=== PATIENT | female | born 1950 | race Caucasian/White ===

== ENCOUNTER 2019-12-06 16:46 | Emergency (ER) | payer OTHER ==
[~2019-12-06] VITALS: Ht 170.2 cm; Wt 113.4 kg
[2019-12-06 18:43] VITALS: BP 176/80
== END 2019-12-06 18:44 | disposition home or self-care (01) ==
LOC: ER 16:46
DX: I10 Essential (primary) hypertension (principal)

== ENCOUNTER 2019-12-08 00:50 | Emergency (ER) | payer OTHER ==
[~2019-12-08] VITALS: Ht 172.7 cm; Wt 113.4 kg
[2019-12-08] MEDS ORDERED: ATORVASTATIN CA20 MG PO (01:26)
[2019-12-08] MEDS ORDERED: MEDROL DOSPAK21 TA1 PO (01:26)
[2019-12-08] MEDS ORDERED: FAMOTIDINE40 MG PO (01:26)
[2019-12-08] MEDS ORDERED: LISINOPRIL5 MG PO (01:26)
[2019-12-08] MEDS ORDERED: LEVAQUIN 500 M500 M1 PO (01:26)
[2019-12-08] MEDS ORDERED: HYDROCODONE-CH115 ML PER TUBE (01:27)
[2019-12-08] MEDS ORDERED: GLIPIZIDE5 MG PO (01:27)
[2019-12-08] MEDS ORDERED: FLONASE 0.05%50 MCG NASAL (01:29)
[2019-12-08] MEDS ORDERED: DICLOFENAC SOD100 G1 TOP (01:29)
[2019-12-08] MEDS ORDERED: GLUCOPHAGE XR750 MG PO (01:29)
[2019-12-08] MEDS ORDERED: BENZONATATE200 MG PO (01:29)
[2019-12-08] MEDS ORDERED: PROAIR HFA8.5 GM INH (01:29)
[2019-12-08] MEDS ORDERED: DULOXETINE HCL20 MG PO (01:30)
[2019-12-08] MEDS ORDERED: AMOXICILLIN875 MG (01:31)
[2019-12-08 03:17] VITALS: BP 120/63
== END 2019-12-08 03:27 | disposition home or self-care (01) ==
LOC: ER 00:50
DX: R51 Headache (principal); M19.90 Unspecified osteoarthritis, unspecified site

== ENCOUNTER 2019-12-11 11:39 | Inpatient (IN) | payer OTHER ==
[~2019-12-11] VITALS: Ht 170.2 cm; Wt 114.3 kg
[~2019-12-11 11:39] MED LIST: AMOXICILLIN875 MG; ATORVASTATIN CA20 MG PO; BENZONATATE200 MG PO; DICLOFENAC SOD100 G1 TOP; DULOXETINE HCL20 MG PO; FAMOTIDINE40 MG PO; FLONASE 0.05%50 MCG NASAL; GLIPIZIDE5 MG PO; GLUCOPHAGE XR750 MG PO; HYDROCODONE-CH115 ML PER TUBE; LEVAQUIN 500 M500 M1 PO; LISINOPRIL5 MG PO; MEDROL DOSPAK21 TA1 PO; PROAIR HFA8.5 GM INH
[2019-12-11 11:41] VITALS: BP 154/71
[2019-12-11 15:34] LABS: URINE BILIRUBIN NEGATIVE (Negative); URINE BLOOD NEGATIVE (Negative); URINE CLARITY CLEAR; URINE COLOR YELLOW; URINE GLUCOSE-RANDOM* NEGATIVE (Negative); URINE KETONES NEGATIVE (Negative); URINE LEUKOCYTES-REFLEX NEGATIVE (Negative); URINE NITRITE-REFLEX NEGATIVE (Negative); URINE PROTEIN (DIPSTICK) NEGATIVE (Negative); URINE SPECIFIC GRAVITY >= 1.030 (1.005-1.035); URINE UROBILINOGEN 0.2 E.U./dl (0.2-1.0)
[2019-12-11 15:42] LABS: ABSOLUTE NEUTROPHILS 6.6 thou/uL (1.4-8.2); BASOPHILS 1.1 % (0.0-2.0); EOSINOPHILS 1.7 % (0.0-3.0); HEMATOCRIT 38.3 % (37.0-47.0); HEMOGLOBIN 12.8 gm/dL (12.0-15.0); LYMPHOCYTES 25.5 % (24.0-44.0); MCH 32.9 pg (26.0-34.0); MCHC 33.5 g/dL (28.0-37.0); MCV 98.1 fL (80.0-100.0); MONOCYTES 7.4 % (1.0-8.0); PLATELET COUNT 226 thou/uL (150-400); POLYS 64.3 % (36.0-66.0); RDW 13.1 % (10.5-14.5); WBC 10.2 thou/uL (4.0-11.0)
[2019-12-11 15:54] LABS: AMP/METHAMP Negative (Negative); BARBITURATES Negative (Negative); BENZODIAZEPINES Negative (Negative); COCAINE Negative (Negative); METHADONE Negative (Negative); OPIATES Negative (Negative); PCP Negative (Negative)
[2019-12-11 15:58] LABS: ANION GAP 12 mmol/L (7-16); BUN 15 mg/dL (7-18); CALCIUM 8.5 mg/dL (8.5-10.1); CHLORIDE 104 mmol/L (98-107); CO2 24 mmol/L (21-32); CREATININE 1.1 mg/dL (0.6-1.0); GLUCOSE 231 mg/dL (74-106); POTASSIUM 3.6 mmol/L (3.5-5.1); SODIUM 140 mmol/L (136-145)
[2019-12-11 16:02] LABS: ALBUMIN 3.6 g/dL (3.4-5.0); DIRECT BILIRUBIN < 0.1 mg/dL (<0.1-0.2); SGOT 12 U/L (15-37); SGPT 21 U/L (30-65); TOTAL BILIRUBIN 0.4 mg/dL (<0.1-1.0); TOTAL PROTEIN 7.5 g/dL (6.4-8.2)
[2019-12-11] MEDS ORDERED: SEROQUEL 25 MG25 MG PO (16:04)
[2019-12-11] MEDS ORDERED: TRAMADOL-ACETA1 EACH PO (16:05)
[2019-12-11] MEDS ORDERED: HYDROXYZINE HCL25 M2 PO (16:06)
[2019-12-11 16:44] VITALS: BP 131/59
[2019-12-11 16:48] VITALS: BP 131/59
[2019-12-11 19:15] VITALS: BP 147/69
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
--- NOTE | 2019-12-12 03:53 | NUR ---
Care assumed of patient at 1915: Patient seated in her room at start of shift talking on the phone. Patient hyperverbal and hyperactive. Patient alert and oriented x4. Patient has difficulty answering one question at a time. Patient demanding at times. Patient interuptive, sarcastic, intrusive. Patient observed touching, holding hands, rubbing shoulders of peers and staff. Patient required several re-directions. Patient then started to call staff mean. Reports that her daughter is a very educated person and is very supportive of her and she will make all her concerns known to her daughter. Patient then going around to other peers promising that her boyfriend will bring his guitar in the morning and play/sing for everyone. Patient re-directed that no outside belongings are allowed in besides 2 pair of clothing. Patient continued to tell peers this story despite re-direction. Patient then started to demand a diet coke. Patient re-directed that she was not allowed any drink with caffiene. So she started demanding caffiene free diet coke. Patient intrusive at the nurses station several times during nursing report and throughout the shift. Patient continues to talk at a higher volume while attempting to re-direct. Patient began yelling for her personal belongings, cell phone, wash clothes, muscle relaxers, soap, toothbrush, diabetic snacks. Patient large management problem this shift. It took several minutes for patient to take HS medication whole due to her talking continuously. Patient needing strict boundaries which are not always successful. Patient did eat 100% HS snack despite it not being "the right snack". Disorganized speech, flight of ideas. Nurse attempted to assess pain but patient started to speak about her Bible and readings. Attempted to assess depression and anxiety but patient started to speak about how much she loves her boyfriend. Patient hyperactive around dayroom and bedroom and hallways. Patient retired to bed around 2200 but was unable to sleep. Despite nurse being on the phone, patient came up to the nurses station and started to yell at nurse, asking if she can sit up and read her Bible. Nurse allowed patient to sit up and read Bible but instructed her to remain quiet and stay to self since others are trying to sleep. Patient did not even sit down once she went to dayroom and started to sit with peer rubbing his leg. MD notified. Order obtained for Geodon 15mg IM. Security notified due to unpredictable behaviors from patient. animal park code enforcement officer made presence known when she started to yell and say she was scared. Patient then started to talk about how her boyfriends cousin was an [facility] officer and she wasn't scared followed by another long explanation of disorganized speech. Patient allowed nurse to administer medication to right deltoid. However, patient did grab nurses hand while medication was administered and required re-direction to keep hands to herself. Patient escorted to bed 15 minutes later and she has been resting quietly since.
--- NOTE | 2019-12-12 12:04 | NUR ---
Nutrition: Pt admit to [facility] for psych eval following headache and high blood pressure and is hyperverbal. Also treated with abx for bronchitis. Malnutrition screening revealed 2pt risk d/t poor intake from decreased appetite and reported wt loss of 14-23# in the last 3 months. Has T2DM, HTN, HLD. Hx osteoarthritis. Claims psych symptoms began 6 weeks ago when one doctor prescribed prednisone. Also stated her appetite decreased significantly around that time, leading to weight loss of around 20# from her usual 260#. Currently 245# or 94% of UBW. States appetite has improved and returned to normal. She "loves the food here." Intake is good at 100% of HS snack and 100% breakfast. Follows diabetic diet at home and states her boyfriend is supportive and helpful with cooking. Edema present and Lasix noted. Glucose ranging from 161-231, HgA1c results pending. Pertinent meds are metformin, glipizide, atorvastatin, lisinopril. Cholecalciferol noted for Vit D deficiency at 6.9. No muscle wasting observed. Continue to monitor for nutrient deficiency, weight changes, appetite, and intake. Considering good appetite, intake, and weight beginning to stabilize, Pt should be considered low nutritional risk.
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
[2019-12-12 20:17] VITALS: BP 117/50
--- NOTE | 2019-12-12 20:29 | NUR ---
Up ambulating t/o unit without s/o distress. Hyperverbal at times. Alert and orientated X4. Conversive with peers and staff, visitors. Phone and some belongings sent home with daughter per inventory sheet. Denies SI/HI. Tylenol given during afternoon for CARIAS, sleeping upon reassessment. Breath sounds clear t/o, bilaterally equal. Reg HR auscultated. Color pink with brisk capillary refill and palpable peripheral pulses. Independent with voiding. Active bowel sounds over soft, rounded abdomen. R upper gums reddened, she states it is painful. Also asking about BG. Dr. Spaulding paged X 2 regarding Lasix without K+ replacement, no order for BG and above issues. Here examining pt. States he will enter orders. 1800 No s/o distress. Talking on phone and interacting with peers.
[2019-12-12 23:10] LABS: GLYCOHEMOGLOBIN (HGB A1C) 7.5 % (4.8-5.6)
--- NOTE | 2019-12-13 04:48 | NUR ---
ASSUMED CARE OF PT AT 1915HRS. PT IS AOX4 AND LETS NEEDS BE KNOWN. PT IS INDEPENDENT WITH A WALKER. PT LIKES TO BE IN CHARGE AND IS EASILY UPSET IF SHE DOES NOT HAVE THINGS HER WAY. PT LIKES TO SNACK FREQUENTLY AND WILL APPROACH DIFFERENT STAFF MEMBERS. PT REPORTED SOME PAIN AND WAS TREATED WITH PRN PAIN MEDS. PT DENIED SI/HI, NAUSEA OR SOA. PT WAS ABLE TO SLEEP PART OF THE SHIFT. VSS AND NO S/S OF ACUTE DITRESS. WILL CONTINUE TO MONITOR.
[2019-12-13 08:57] VITALS: BP 128/67
--- NOTE | 2019-12-13 15:33 | NUR ---
0700 ASSUMED CARE OF PATIENT. PATIENT SITTING ON COUCH COMMUNICATION WITH OTHER PATIENTS. PATIENT STATES NOT FEELING TO GOOD TODAY, STATES SHE IS PASSING OUT. i HAVE OBSERVED PATIENT AND PATIENT AMBULATES TO ROOM WITH WALKER PATIENT STATES SHE IS GOING TO THE ROOM TO PASS OUT. BP 128/67 P 100 RESP 18 T 97.5 O2 SATS 99%. PATIENT LIES DOWN CLOSES EYES THEN 5-10 MIN LATER GETS BACK UP AND TO DAYROOM. 0900 PATIENT TAKES MEDS WHOLE WITHOUT DIFFICULTY STATES "I WILL DISCUSS MEDS WITH DR I AM TAKING TO MUCH, I TOOK 9 MEDS LAST NIGHT". LUNG SOUNDS CLEAR, BS X 4, DENIES PAIN, NO SI/HI/AH/VH. PATIENT SITTING IN CHAIR. STATES GOING TO PASSOUT AND MOVES TO GERICHAIR. PATIENT CONTINUES TO TALK TO DIGITIZER OPERATOR, IS DISTRACTED WITH OTHER PATIENTS AND DOES NOT PASS OUT. PATIENT AMB BACK TO CHAIR WITH OTHER PATIENTS.
--- NOTE | 2019-12-13 15:50 | NUR ---
1515 PATIENT C/O DISCOMFORT TO KNEES BILATERALY AND CALVES BILATERALY. MUSCLE RUB APPLIED TO THESE AREAS. PATIENT LYING DOWN AT THIS TIME. [address] REGARDING HOW PATIENT FEELS AND EXPLAINING HER FEELING OF WANTING TO FAINT. NO OBSERVATIONS OF PATIENT FAINTING. WILL CONTINUE TO OBSERVE PATIENT.
[2019-12-13 18:01] LABS: HEMATOCRIT 38.8 % (37.0-47.0); MCH 32.8 pg (26.0-34.0); MCHC 33.6 g/dL (28.0-37.0); MCV 97.6 fL (80.0-100.0); RBC 3.98 mil/uL (4.20-5.00); RDW 12.9 % (10.5-14.5); WBC 9.1 thou/uL (4.0-11.0)
[2019-12-13 18:19] LABS: ANION GAP 10 mmol/L (7-16); BUN 14 mg/dL (7-18); CALCIUM 8.9 mg/dL (8.5-10.1); CHLORIDE 100 mmol/L (98-107); CO2 27 mmol/L (21-32); GLUCOSE 167 mg/dL (74-106); MAGNESIUM 1.8 mg/dL (1.8-2.4); SODIUM 137 mmol/L (136-145); TROPONIN-I <0.06 ng/mL (<0.06)
[2019-12-13 19:44] VITALS: BP 127/54
[2019-12-13 20:11] LABS: SYPHILIS AB Non Reactive (Non Reactive)
--- NOTE | 2019-12-14 03:48 | NUR ---
PATIENT UP AND WALKED OUT TO DINING ROOM WITH HER WALKER. SHE STATES SHE CAN'T SLEEP AND SHE IS STIFF FROM ARTHRITIS AND WANTS TYLENOL. PATIENT VERY NEEDY AND KEEPS ASKING FOR PEOPLE TO GO AND GET HER GLASSES, SHOES, WATER, NO I WANT IN THE RECLINER, MOVE IT UNDER THE LIGHT, GET ME A MAGAZINE. PT GIVEN TYLENOL AND AM LETTING HER DO WHAT SHE CAN FOR HERSELF EVEN WITH SOME FRUSTRATION FROM HER. PATIENT THEN GOT BACK UP TO GO TO HER ROOM TO USE THE BATHROOM. SHE STATES SHE FEELS BETTER THAN SHE DID A FEW MINUTES AGO. PATIENT HAS IV SALINE LOCK INTACT ON LEFT ARM. HER IV NS 500MLS ENDED AT 2335 AND WAS FLUSHED WITH NS AND LOCKED AND DETATCHED FROM IV PUMP AT THAT TIME.
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
[2019-12-14 06:02] LABS: HEMATOCRIT 35.2 % (37.0-47.0); HEMOGLOBIN 11.9 gm/dL (12.0-15.0); MCHC 33.8 g/dL (28.0-37.0); MCV 97.9 fL (80.0-100.0); RBC 3.59 mil/uL (4.20-5.00); RDW 13.1 % (10.5-14.5); WBC 5.8 thou/uL (4.0-11.0)
[2019-12-14 06:10] LABS: CALCIUM 8.2 mg/dL (8.5-10.1); MAGNESIUM 1.7 mg/dL (1.8-2.4); POTASSIUM 3.6 mmol/L (3.5-5.1)
--- NOTE | 2019-12-14 08:18 | EKG ---
[facility] [place] [address] ELECTROCARDIOGRAM REPORT Name: SE BONILLA Room #: [facility] ADM IN M.R.#: [id number] Admission: 12/11/19 Attend Phys: Erick Sauceda DO Discharge: Date of : 46 Report #: [id number] THIS REPORT FOR: cc: Michael Coe MD, Sequita MD Lundgren,Misael Huitron MD [facility] ~ THIS REPORT FOR: //name// [facility] Test Date: 2019-12-13 Test Time: 18:36:05 Pat Name: SE BONILLA Department: Room: [facility] Gender: F Store Clerk Checker: Coy BENAVIDES : 1950 Requested By: Harry Spaulding Order Number: [id number] MD: Misael Adams Measurements Intervals [place] Rate: 93 P: 77 MN: 177 QRS: 34 QRSD: 93 T: 23 QT: 365 QTc: 454 Interpretive Statements Sinus rhythm Nonspecific ST and T wave abnormality Compared to ECG 12/11/2019 15:39:44 No significant changes Electronically Signed On 12-14-2019 8:17:43 ECONOMICS INSTRUCTOR by Misael Adams [email or web address] <ELECTRONICALLY SIGNED> By: Misael Adams MD, [facility] 12/14/19 0817 1836 1836 Misael Adams MD, [facility] /EPI
--- NOTE | 2019-12-14 09:08 | 2DMMODE ---
[facility] [place] [address] 2 D/M-MODE ECHOCARDIOGRAM Name: SE BONILLA Room #: 518B-B ADM IN M.R.#: [id number] Admission: 12/11/19 Attend Phys: Erick Sauceda DO Discharge: Date of : 46 Report #: [id number] THIS REPORT FOR: cc: Michael Coe MD, Sequita MD Lundgren,Misael Huitron MD [facility] ~ APPROVED REPORT Study performed: 12/14/2019 08:31:05 EXAM: Comprehensive 2D, Doppler, and color-flow Echocardiogram Patient Location: Echo lab Room #: 518 Status: routine BSA: 2.20 HR: 84 bpm BP: 127/54 mmHg Rhythm: NSR Other Information Study Quality: Adequate Indications Bilateral leg edema. Hx: HTN, HLP, DM. 2D Dimensions RVDd: 34.50 mm IVSd: 12.17 (7-11mm) LVOT Diam: 19.71 (18-24mm) LVDd: 43.16 mm PWd: 11.07 (7-11mm) Ascending Ao: 27.04 (22-36mm) LVDs: 30.72 (25-40mm) Aortic Root: 28.05 mm Volumes Left Atrial Volume (Systole) Single Plane 4CH: 43.61 mL Single Plane 2CH: 39.70 mL LA ESV Index: 21.00 mL/m2 Aortic Valve AoV Peak Bandar.: 1.46 m/s AO Peak Gr.: 8.49 mmHg LVOT Max P.83 mmHg LVOT Max V: 0.98 m/s MSUTAPHA Vmax: 2.05 cm2 [facility] [email or web address] [address] 2 D/M-MODE ECHOCARDIOGRAM Name: SE BONILLA Room #: 518B-B ADM IN ..#: [id number] Admission: 12/11/19 Attend Phys: Erick Sauceda Discharge: Date of : 46 Report #: [id number] Mitral Valve E/A Ratio: 0.8 MV Decel. Time: 143.45 ms MV E Max Bandar.: 0.79 m/s MV A Bandar.: 0.93 m/s MV PHT: 41.60 ms IVRT: 58.82 ms Pulmonary Valve PV Peak Bandar.: 1.15 m/s PV Peak Gr.: 5.25 mmHg Pulmonary Vein P Vein S: 0.54 m/s P Vein A: 0.32 m/s P Vein D: 0.42 m/s P Vein A Dur.: 117.6 msec P Vein S/D Ratio: 1.29 Tricuspid Valve TR Peak Bandar.: 1.82 m/s RAP Estimate: 5.00 mmHg TR Peak Gr.: 13.23 mmHg PA Pressure: 18.00 mmHg Left Ventricle The left ventricle is normal size. There is normal LV segmental wall motion. Mild basal septal hypertrophy is present. Left ventricular systolic function is normal. LVEF is 60-65%. Mild diastolic dysfunction is present (impaired relaxation pattern). Right Ventricle The right ventricle is normal size. The right ventricular systolic function is normal. Atria The left atrium size is normal. The right atrium size is normal. Aortic Valve The aortic valve is normal in structure. No aortic regurgitation is present. There is no aortic valvular stenosis. Mitral Valve The mitral valve is normal in structure. Trace to mild mitral regurgitation. Tricuspid Valve The tricuspid valve is normal in structure. Trace tricuspid [facility] [address] [place] [address] 2 D/M-MODE ECHOCARDIOGRAM Name: NAYELIWAYNEEDIESE Room #: 518B-B ADM IN .R.#: [id number] Admission: 12/11/19 Attend Phys: Erick Sauceda Discharge: Date of : 46 Report #: [id number] regurgitation. Estimated PAP is 20mmHg. Pulmonic Valve The pulmonary valve is normal in structure. Trace pulmonic regurgitation. Great Vessels The aortic root is normal in size. The ascending aorta is normal in size. IVC is normal in size and collapses >50% with inspiration. Pericardium There is no pericardial effusion. <Conclusion> Left ventricular systolic function is normal. There is normal LV segmental wall motion. LVEF is 60-65%. Mild diastolic dysfunction The aortic valve is normal in structure. No aortic regurgitation or stenosis. The mitral valve is normal in structure. Trace to mild mitral regurgitation. Trace tricuspid regurgitation. Estimated puilmonary artery pressure of 20mmHg. There is no pericardial effusion. <ELECTRONICALLY SIGNED> By: Misael Adams MD, FACC 12/14/19906 6 6 Misael Adams MD, FACC /INF
--- NOTE | 2019-12-14 11:22 | EKG ---
[facility] [place] [address] ELECTROCARDIOGRAM REPORT Name: SE BONILLA Room #: 518B- ADM IN M.R.#: [id number] Admission: 12/11/19 Attend Phys: Erick Sauceda DO Discharge: Date of : 46 Report #: [id number] THIS REPORT FOR: cc: Michael Coe MD, Sequita MD Couchonnal,Cain Bauman MD ~ THIS REPORT FOR: //name// [facility] ED Test Date: 2019-12-11 Test Time: 15:39:44 Pat Name: SE BONILLA [facility] Gender[facility] F Chip Tester: LAUREN : 1950 Requested By: Steffi Calle Order Number: [id number] MD: Cain Castillo Measurements Intervals [place] Rate: 85 P: 77 WA: 170 QRS: 28 QRSD: 99 T: 24 QT: 366 QTc: 436 Interpretive Statements Sinus rhythm Low voltage, precordial leads Borderline T wave abnormalities No previous ECG available for comparison Electronically Signed On 12-11-2019 16:54:44 DIP LUBE OPERATOR by Cain Castillo [email or web address] <ELECTRONICALLY SIGNED> By: Cain Castillo MD 12/11/19 1654 1539 1539 Cain Castillo MD /EPI
--- NOTE | 2019-12-14 11:40 | NUR ---
Up ambulating in unit with walker, no s/o distress. Alert and orientated X4. States she feels good today. Denies SI/HI, no mention of pain. Conversive with peers and staff. Breath sounds clear t/o, bilaterally equal. Reg HR auscultated. Color pink with brisk capillary refill and palpable peripheral pulses. +1 edema in lower extremities. Independent with voiding. Active bowel sounds over large, rounded abdomen. Attempting to have BM at this time. [address] Sauceda that she doesn't feel well, needs to go lay down in bed. He encouraged her to stay in day room on couch for a few moments and refilled her water. Vitamin B12 shot given per L arm without difficulty. Will get orthostatic BPs after group/visiting hours.
[2019-12-14 13:16] VITALS: BP 120/65
[2019-12-14 13:52] VITALS: BP 119/51
[2019-12-14 13:55] VITALS: BP 115/50
[2019-12-14 14:00] VITALS: BP 113/61
[2019-12-14 19:30] VITALS: BP 125/53
--- NOTE | 2019-12-14 23:49 | NUR ---
Care assumed of patient at 1915: Patient seated in dayroom at start of shift. Patient speaking with her daughter on the phone at start of shift. Daughter called nurses station with some concerns after speaking with patient. Daughter reported that patient kept falling asleep while they were speaking on the phone, concerned about patient falling if she is overly sedated, concerned about current medication dosage. Appears that dosage of Haldol was reduced, education provided to daughter on patient on this. Educated daughter and patient on fall precautions in place. Patient up and speaking with peers throughout the evening. Overall, calm, pleasant and cooperative. Patient easily agitated and difficulty focusing on one topic during nursing assessment. Patient hyperverbal and attention seeking at times. Patient less intrusive with staff. Patient demanding at times and reminded to use please/thank you's and to ask rather than demand. Patient did not care for this re-direction and became quite irritable causing nurse a bully and that she was going to turn in staff for being rude/disrespectful. Patient took HS medication whole without difficulty but was particular in the order she took them. Became rude when one pill was handed to her before a different one. Obsessive at times. Ate 100% HS snack. Appeared as though patient retired to bed at a reasonable hour. Dining room was cleaned, open food/containers thrown away, craft supplies put away. Patient came to day room around 2200 asking where her cookies were and her markers. Patient notified that staff thought she had retired to bed and apologized. Patient then started calling staff a "snitch" and that staff had no right to go through her belongings. Despite all education provided regarding cleaning and picking up the day room, patient remained angry and agitated with staff. Patient started to fall asleep in recliner and was asked if she wanted assistance to bed. Patient stated she never went to bed before midnight and she wasn't tired. Education provided that she needed to get a good night of rest so she would not be tired during the day. Patient was agitated, stating she was an adult and could do what she wanted. Denies SI/HI/AH/VH. Denies anxiety or depression. Patient recently retired to bed and appears to be resting quietly at this time.
--- NOTE | 2019-12-15 11:52 | NUR ---
MILDLY HYPERVERBAL THIS AM. CONVERSING WITH FEMALE PEERS IN DAYROOM-AND WITH BF AND DAUGHTER DURING AM VISITING HOURS. NEEDS REMINDERS TO MARYBEL BE CAREAKING AND INTRSUDVE WITH PEER GROUP, RENETTA AT [phone]. GOOD APPETTITE, GAIT SLOW AND STEADY WITGH USE OF ROCKER.
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
[2019-12-15 19:15] VITALS: BP 109/61
--- NOTE | 2019-12-15 23:57 | NUR ---
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 SHE IS SITTING IN DAYROOM WITH PEERS, MAKING VARIOUS DEMANDS. SOME COOPERATION WITH ASSESSMENT PROCESS WITH MUCH REDIRECTION. TOOK MEDS WITH QUITE A LOT OF ENCOURAGEMENT, REQUIRING CRACKERS AND TAKING ONE PILL AT A TIME, ACTING LIKE SHE IS GOING TO REFUSE SOME, THEN TAKING THEM AFTER ALL. GREAT DEAL OF COMPLAINING ABOUT CERTAIN STAFF AND VARIOUS RULES. SEEMS TO LIKE TO MAKE DEMANDS OF STAFF WHEN THEY ARE IN THE MIDDLE OF TASKS. NO C/O PAIN THIS SHIFT. NO APPARENT PHYSICAL DISTRESS. WILL CONTINUE TO MONITOR
--- NOTE | 2019-12-16 06:20 | NUR ---
WOKE IN NIGHT WITH INCONTINENCE OF A LARGE AMT OF URINE ON FLOOR. VERY SARCASTIC AND DEMANDING STAFF CLEANED UP HER AND HER CLOTHES
[2019-12-16 07:34] VITALS: BP 135/51
--- NOTE | 2019-12-16 11:10 | NUR ---
Sleeping in recliner without s/o distress. Ambulates back to room with walker after assistance with standing from recliner. Denies SI/HI, alert and orientated X4. Frequent requests and demands typically during/after another pt. is given attention. States she is concerned about splinter in finger and also states she should be given pepcid before her AM meds per her GI doctor. Breath sounds clear t/o, bilaterally equal. Reg HR auscultated. Color pink with brisk capillary refill and palpable peripheral pulses. +1 edema in lower legs bilaterally, rebekah hose applied. Yellow urine per toilet. Active bowel sounds over soft, rounded abdomen. Area between buttocks reddened and she states it feels raw. Cleaned and protective ointment applied. Compliant with meds. Steady gait with walker, no s/o distress.
[2019-12-16 21:00] VITALS: BP 152/67
--- NOTE | 2019-12-16 23:54 | NUR ---
Assisted pt up from chair in dayroom to standing position @ 2100. Pt asked for a wheelchair et was told that she was capable of walking to her restroom et that she should ambulate in order to keep her muscles strong. Pt turned argumentative et belligerent with this nurse. Pt states that she is "going to report you". Informed pt that we are only trying to keep her ambulating as long as she is able to do so. Pt states that we "do things for everyone else so you can do things for me too". Pt started cursing and was told that we did not have to listen to that type of language. Pt states that her daughter will "take care of the lot of you". Informed pt that was threatening behavior et she stated that was "bullshit". Pt then proceeded to walk to her room ambulating with assistance of a walker et a steady gait. Approximately 15 minutes latet, this nurse went to give pt her medications et she stated that she didn't "give a shit about those" but wanted someone to wipe her butt. Informed pt that she was capable of wiping her own bottom but that I would assist her in standing up. Asked pt her reasoning in wanting to refuse her medications et she states that she is on too many et that is why she is sleeping all of the time. Pt continues to berate this nurse for making her exercise her independence et threatening job. Informed pt that is not appropriate behavior et that it will be reported to the physician. Pt states, "I don't give a shit" et "my daughter will take care of you as soon as I tell her how you all are behaving". Informed pt that encouraging her to practice her independence for as long as she is able is considered therapeutic in the medical community. Pt continues to be argumentative. Made sure that pt was in a safe position et left the room. Approximately 2 hours later, pt was again sitting in a recliner in the dayroom when she started yelling for someone to help her out of the chair. When this nurse asked pt why she was yelling, she stated that we needed to call security because she feels threatened by the staff. Asked pt to explain why she feels that she is being threatened. Pt states that we are not doing anything for her. Attempted to explain again that we encourage people to perform activities that we know they are capable of performing. Pt states "bullshit" et continued to state that she is going to get her daughter "to take care of all of you". Reiterated that she was verbalizing threatening behavior but pt continued to do so until this nurse walked away. Will continue to monitor per protocol.
[2019-12-17 00:46] VITALS: BP 152/67
--- NOTE | 2019-12-17 05:10 | NUR ---
Patient slept well until 0400 when she asked her roommate to come and inform the nurse that she needed to get up and go to the restroom. Patient assisted to walker with stand-by assist. She ambulated to bathroom by self with walker. Gait slow, steady, and shuffling. Pt. encouraged to stand tall when ambulating. Pt. voided urine x 2 for this nurse on this shift. Pt. requested Tylenol at approx. 2330 and Papito Olguin at approx 0500 to upper back for pain. Pt. refuses to use numerical scale. PAINAD =2. No s/s of distress noted.
[2019-12-17 05:46] LABS: BASOPHILS 0.5 % (0.0-2.0); EOSINOPHILS 1.6 % (0.0-3.0); HEMATOCRIT 40.3 % (37.0-47.0); HEMOGLOBIN 13.4 gm/dL (12.0-15.0); LYMPHOCYTES 37.5 % (24.0-44.0); MCH 32.7 pg (26.0-34.0); MCHC 33.3 g/dL (28.0-37.0); MCV 98.2 fL (80.0-100.0); MONOCYTES 9.8 % (1.0-8.0); PLATELET COUNT 230 thou/uL (150-400); POLYS 50.6 % (36.0-66.0); RDW 12.9 % (10.5-14.5)
[2019-12-17 06:13] LABS: ALBUMIN 3.5 g/dL (3.4-5.0); CALCIUM 9.6 mg/dL (8.5-10.1); CREATININE 0.9 mg/dL (0.6-1.0); POTASSIUM 4.2 mmol/L (3.5-5.1); TOTAL BILIRUBIN 0.6 mg/dL (<0.1-1.0); TOTAL PROTEIN 7.6 g/dL (6.4-8.2)
[2019-12-17 07:34] VITALS: BP 131/63
[2019-12-17 09:51] VITALS: BP 131/63
[2019-12-17 10:12] LABS: URINE BILIRUBIN NEGATIVE (Negative); URINE BLOOD NEGATIVE (Negative); URINE CLARITY CLEAR; URINE COLOR YELLOW; URINE GLUCOSE-RANDOM* NEGATIVE (Negative); URINE KETONES NEGATIVE (Negative); URINE LEUKOCYTES TRACE (Negative); URINE NITRITE NEGATIVE (Negative); URINE PROTEIN (DIPSTICK) NEGATIVE (Negative); URINE SPECIFIC GRAVITY 1.015 (1.005-1.035); URINE UROBILINOGEN 0.2 E.U./dl (0.2-1.0)
--- NOTE | 2019-12-17 13:52 | NUR ---
1350 RESUMMED CARE FROM OVERNIGHT SHIFT, PATIENT IN DAY ROOM TALKING WITH ROOMMATE. PATIENT ATE BREAKFAST AND TOOK MEDICATION WITHOUT INCIDENCE. PATIENT WAS MAKING ROOMMATE DO THINGS FOR HER, I TOLD PATIENT SHE CAN AMBULATE AND WALK WITH THE AID OF THE WALKER. PATIENT WAS VERY NEEDY AND ATTENTION SEEKING THIS AM. I ENCOURAGED TO WALK AND MOVE AROUND SO THAT HER JOINTS DON'T GET STIFF. PATIENT DID PARTICIPATE IN GROUPS, PATIENT DENIES ANY SI/HI OR AH AT PRESENT. WILL CONTINUE TO MONITOR PATIENT FOR SAFETY AND BEHAVIORS.
--- NOTE | 2019-12-17 16:38 | NUR ---
Sitting in day room with peers. Asked to go to day room to do assessment. Slow, steady gait with walker. Alert and orientated X 4. Requesting to take a shower. Also states that she has R leg pain. Frequent requests for assistance with hygiene and handing her objects. Tylenol given for pain. Requesting Papito Olguin to be applied to shoulders, done with assistance. Breath sounds clear t/o. Reg HR auscultated. Color pink with brisk capillary refill and palpable peripheral pulses.
[2019-12-17 20:15] VITALS: BP 130/54
--- NOTE | 2019-12-18 05:06 | NUR ---
ASSUMED CARE OF THIS PATIENT AT 1900 FOR ASPHALT PATCHER. SHE HAS BEEN QUITE NEEDY ALL SHIFT, REQUESTING THAT ONLY THIS STAFF PROVIDE CARES. MINIMAL ATTEMPTS TO DO ANY CARES FOR SELF. HAS BEEN HAVING ROOMMATE DO ERRANDS FOR HER AND GO TO GET STAFF, EVEN IN MIDDLE OF NIGHT. ROOMMATE TRANSFERRED TO ANOTHER ROOM SO THAT SHE CAN GET SOME SLEEP. HAS BEEN INCONTINENT OF BLADDER RATHER THAN GET UP AND USE RESTROOM. WILL CONTINUE TO MONITOR
[2019-12-18 08:42] VITALS: BP 120/54
--- NOTE | 2019-12-18 11:34 | NUR ---
I spoke with Lilly, Jaelyn's daughter today. Lilly had concerns about the night staff. According to Lilly, Jaelyn has told her that the night staff is yelling at her and not assisting her with care. I shared that when staff sets boundries and or is direct in their communication patient can perceive that as being "mean". I shared with Lilly that our staff has years of experience in dealing with psych patients. I informed Lilly that last night Jaelyn refused to help care for herself, she expects staff to do everything for her. Jaelyn urinated on herself last night and expect the DRILLING FIELD SPECIALIST to carry her to the bathroom. The DRILLING FIELD SPECIALIST offered Jaelyn adult briefs and she refused wanting to sit in urine soaked panties rather than helping clean herself up. Lilly was confused by that and stated, she (Jaelyn) knows her she needs to go to the bathroom and couldn't understand why she would say such a thing. I shared that Jaelyn did not take her night medication. Lilly shared that Jaelyn took her meds but then vomited. I informed Lilly there is no documentation in the record, nor did I hear in report that Jaelyn was vomiting. I explained that Jaelyn appeared to be refusing her medication b/c staff was not catering to her. We discussed that Jaelyn has informed staff that she was "going to tell my daughter and she will fix things." I explained that this is coming off as a threat rather than a statement of I am going to talk with my daughter. Lilly understood. We talked about Jaelyn having difficulties getting out ofbed due to having a knee and hip replacement. Lilly informed me that she has requested the bed be in a higher position as it is hard for her mother to get out of bed. I explained the rationale for having the bed in a low position. We agreed that the bed could be at a higher level to assist with getting out of bed. We discussed a discharge date of WednesdayDec 20.
--- NOTE | 2019-12-18 11:55 | NUR ---
Date of Admission: 12/11/19 Date of Activity Therapy Assessment: 12/14/19 Activity Goal: Manage anxiety symptoms Initial Goal: 2 Group activities/day Weekly progress towards goal: Achieving current goals Group participation level: Full Behaviors observed: Patient attends all groups offered. At times patient is intrusive and demanding of peers and others she is drowsy. Patient enjoys reminiscing and talking about her ex and current boyfriend. She is easily redirectable. Plan: No change towards goal
--- NOTE | 2019-12-18 13:20 | NUR ---
ESTEPHANIE talked with Daisy and listened to her concerns. She said she is concerned about the catalytic converter operator helper, she said the nursing care partner said she would address her concerns. She also said that she was advised pt refused her meds, and she spoke with her mother about this and emphasized that she must take her meds. SW team will continue to follow pt during her stay on this unit.
--- NOTE | 2019-12-18 14:06 | NUR ---
0715 ASSUMED CARE OF PATIENT. 0830 PATIENT IN DAYROOM EATING BREAKFAST. SITTING WITH OTHER PATIENTS COMMUNICATING WELL. NO C/O SI/HI/AH/VH. DENIES NEEDS AT THIS TIME PATIENT STATES PAIN TO KNEE ONLY WHEN MOBLE. PATIENT BECOMES EMOTIONAL STATING "MY DAUGHTER IS COMING FOR MEETING AND SHE IS GOING TO TALK TO TOMASA REGARDING NIGHT STAFF BEING MEAN TO ME". PATIENT REQUESTS WC TO GET TO HER ROOM TO USE BATHROOM. PATIENT MOVES HERSELF TO ROOM, MATERIAL DAMAGE ADJUSTER EXPLAINED THE NEED TO USE WALKER AND GET BACK TO AMBULATING MORE WHEN SHE ARRIVED. PATIENT VOICED UNDERSTANDING. 0930 PATIENT C/O CARIAS RATING PAIN AT A 8 ON NUMERIC PAIN SCALE AND BILTERAL KNEE PAIN RATING PAIN AT A 5. TYLENOL 650 MG PO GIVEN. 1345 PATIENT HEADED TO GROUP IN CONFERENCE ROOM USING WALKER. PATIENT WAS INCONTINENT OF URINE AND VIDEO POKER FLOORMAN ASSISTED PATIENT TO ROOM ABMBULATING WITH WALKER TO GET CLEANED UP. MATERIAL DAMAGE ADJUSTER HELPED PATIENT BACK TO BED USING WALKER. PATIENT LAYS DOWN IN BED.
--- NOTE | 2019-12-18 16:40 | NUR ---
1540 PATIENT COMPLAINS OF SHOULDER PAIN AND KNEE PAIN. MUSCLE RUB APPLIED TO BOTH AREAS. PATIENT STATES " PAIN IS DUE TO ARTHRITIS. 1640 PATIENT ASKS FOR ICE PACK TO APPLY TO FINGER ON RIGHT HAND. FINGER WAS SMASHED BETWEEN 2 CHAIRS. ICE PACK GIVEN AND APPLIED AT THIS TIME.
--- NOTE | 2019-12-18 18:20 | NUR ---
PATIENT SITTING IN DAYROOM COMMUNICATING WELL WITH OTHER PATIENTS. DENIES NEEDS. WILL CONTINUE TO MONITOR PATIENT.
[2019-12-18 19:30] VITALS: BP 103/51
--- NOTE | 2019-12-19 04:48 | NUR ---
Assumed care of pt @ 1900. Pt calm et cooperative this shift. Pt c/o peer allegedly going into her room et urinating on her bed but peer was observed from time he left his room et he did not go into pt's room. Pt had urinated in her bed causing a total bed change Xs 2 this shift. When pt was informed that peer was observed in jimenez et did not enter her room, pt states "oh bullshit". Pt continues to demand assistance with tasks that she is clearly capable of doing. Pt was given a garza to call for assistance when she needs to get up to urinate, but still urinates in the bed. Ambulates the halls ad shelby with assistance of walker et shuffling gait. VSWNL. Health assessment with no abnormalities other than previously noted. Insisted on taking medications with sugar free pudding d/t "vomiting all of my meds last noc". Pt went from bed to recliner in dayroom to sleep at approximately 0245. Currently resting with eyes closed in recliner in dayroom. Denies SI/HI. Will continue to monitor per protocol.
--- NOTE | 2019-12-19 09:23 | NUR ---
I called Lilly to give her an update on what occured last night. I informed Lilly that Jaelyn slept in the recliner in the day room until 244. I shared with her that Jaelyn had urinated on herself twice. I also shared with her that, yes there is a male patient who does wander and at times goes into patients rooms. We are able to redirect the gentleman. I reassured Lilly that he did not go into Jaelyn's room and urniate on ther. Lilly share with me that her mother stated the peer came into her room and urinated on her feet. I reiterated this was not true. That we have cameras and the cameras show that he did not ernter her room. Another concern Lilly shared was that the door to her mother's room was open during the noc. I educated her on that we keep the doors open so we can do night time checks on the patients. Lilly stated she would speak to her mother.
[2019-12-19 09:50] VITALS: BP 118/54
[2019-12-19 10:55] VITALS: BP 118/54
--- NOTE | 2019-12-19 11:12 | NUR ---
PATIENT WAS UP AND OUT ON THE UNIT, SITTING IN DAY ROOM WHEN CARE ASSUMED. PATIENT C/O NAUSEA AFTER BREAKFAST, ZOFRAN 4MG GIVEN, WITH POSITIVE EFFECT. NO FURTHER COMPLAIN VOICED. PATIENT TOOK ALL MORNING MEDICATION WHOLE IN APPLE SOURCE WITHOUT ANY DIFFICULTY. APPETITIE IS GOOD CONSUMED 100% BREAKFAST. PATIENT AMBULATES WITH ASSIST OF ROLLER WALKER, GAIT SLIGHTLY UNSTEADY. PATIENT DENIES SUICIDAL/HOMICIDAL IDEATION. SHE IS REFUSING TO WEAR RIOS HOSE. PATIENT CONTINUE ON ANTIBIOTIC FOR BRONCHITIS, NO S&S OF ADVERSE REACTION NOTED. AFFECT IS FLAT, MOOD IS CALM, SHE IS COOPERATIVE WITH CARE. PATIENT DENIES HAVING PHYSICAL PAIN AT THIS TIME. CURRENTLY VISITING WITH FAMILY. NO AGGRESSION OR AGITATION NOTED. NO SIGN OF ACUTE DISTRESS NOTED, WILL MONITOR FOR SAFETY.
--- NOTE | 2019-12-19 13:17 | NUR ---
Followup: Remains on [facility] unit. Initially had some wt loss prior admit but has now regained 7 lb. BMI is 39.5-obesity. A1C 7.5-moderate elevation and hospital BG remain under good control. Eating 100% meals. Continue carb control diet. Low nutrition risk
--- NOTE | 2019-12-19 14:57 | NUR ---
ESTEPHANIE received an order from psych doctor for home health for patient to have P/T, nursing, and case management when she discharges tomorrow. Pt chose [facility], [facility], and [facility]. ESTEPHANIE faxed referrals to all three. ESTEPHANIE received a call from Mine Dean with [facility] stating she needs to talk with pt about a hotline that came to her office concerning pt on 12/06/19. ESTEPHANIE did not confirm or deny pt being on the unit. She instead took Mine's number of [phone] and told her she will call her back after speaking to her director. ESTEPHANIE spoke to the director and was told to bring Mine to her when she comes to the unit. Mine arrived and ESTEPHANIE directed her to her director. ESTEPHANIE team will continue to follow pt during her stay on this unit.
[2019-12-19 15:29] VITALS: BP 118/54
[2019-12-19] MEDS ORDERED: MACROBID 100 M100 M3 PO (19:12)
[2019-12-19] MEDS ORDERED: HALOPERIDOL 1 MG1 MG PO (19:13)
[2019-12-19] MEDS ORDERED: DEPAKOTE ER250 MG PO (19:13)
[2019-12-19] MEDS ORDERED: VITAMIN D21250 MC1 PO (19:14)
[2019-12-19] MEDS ORDERED: VITAMIN D325 MCG PO (19:15)
[2019-12-19 19:26] VITALS: BP 110/53
[2019-12-20 00:42] VITALS: BP 110/53
--- NOTE | 2019-12-20 02:02 | NUR ---
Assumed care of patient at 1915. Pt in keon-chair sitting in day room watching TV. She continues to make multiple requests for staff to do things for her that she is capable of doing herself. Pt. was arguing with another patient about what to watch on TV. Pt. is demanding and makes derrogatory and demeaning comments to staff.
--- NOTE | 2019-12-20 03:32 | NUR ---
Pt. up to bathroom with 1 person assist. Pt. continues to state that she cannot do things by herself. Much encouragement given. Pt. went back to bed and appears to be sleeping at this time.
[2019-12-20 07:40] VITALS: BP 117/64
[2019-12-20] MEDS ORDERED: HALOPERIDOL 1 MG1 MG PO (09:10)
--- NOTE | 2019-12-20 10:18 | NUR ---
0715 ASSUMED CARE OF PATIENT. PATIENT SITTING ON COUCH WATCH TV COMMUNICATING WITH OTHER PATIENTS WELL. PATIENT TO TABLE USING WC. DENIES NEEDS AT THIS TIME. 0805 PATIENT C/O PAIN TO KNEES RATES PAIN A 6 ON NUMERIC PAIN SCALE. NO C/O SI/HI/AH/VH, A+Ox4, MEDS TAKEN W/O DIFFICULTY. TYLENOL 650 MG PO GIVEN FOR KNEE PAIN. 1010 ASSISTED PATIENT TO BED FROM BATHROOM, CLOTHES CHANGED DUE TO INCONTINENT OF URINE. PATIENT AMBULATES SLOW AND STATES " I WAS UNABLE TO MAKE IT TO BR IN TIME. RIOS HOSE APPLIED AT THIS TIME WITH YELLOW SOCK IN PLACE. PATIENT AMBULATED BACK TO DAY ROOM.
--- NOTE | 2019-12-20 12:41 | NUR ---
12pm SPOKE WITH DPOA (DAUGHTER) REGARDING D/C TO HOME. INSTRUCTIONS GIVEN TO DPOA. FORMS SIGNED PER PHONE CONSENT WITH 2 RN'S WITNESS. 1235 PATIENT DC'D HOME VIA WC TO VEHICLE ACCOMPANIED BY CASINO CHANGE ATTENDANT (RN) AND SO.
[2019-12-20 12:46] VITALS: BP 118/54
--- NOTE | 2019-12-20 12:47 | NUR ---
SW D/C Note SW read pt's p/t note and saw that pt needs outpatient therapy. ESTEPHANIE contacted [facility] outpatient therapy and talked to them about pt. They asked SW to send over an doctor's order and her d/c docs. ESTEPHANIE talked with pt about outpatient therapy and also engaging in services with [facility]. ESTEPHANIE handed pt a printout with this information including that she will go to [facility] on 12/27/19 to engage in services. ESTEPHANIE also contacted Daisy and gave her this information. ESTEPHANIE faxed pt's discharge docs to [facility] and [facility] Outpatient Therapy. No other needs for ESTEPHANIE team to address at this time.
--- NOTE | 2019-12-20 21:34 | H ---
[facility] [place] [address] HISTORY AND PHYSICAL Name: SE BONILLA Room #: 518B-B [facility] IN ..#: [id number] Admission: 12/11/19 Attend Phys: Erick Sauceda DO Discharge: 12/20/19 Date of : 46 Report #: [id number] THIS REPORT FOR: //name// CC: Erick Sauceda Michael Coe DATE OF SERVICE: 12/12/2019 ATTENDING PHYSICIAN: Erick Sauceda DO. COAL SAMPLE TESTER: Harry Spaulding MD REASON FOR ADMISSION: Minor ernie. SOURCES OF INFORMATION: Interview with the patient, collateral from her significant other Koby, Emergency Room records. HISTORY OF PRESENT ILLNESS: This is a 69-year-old obese female presenting with her significant other to the [facility] Room on 12/11/2019. The patient had told her significant other she wanted to come in. Aside from her very obvious ernie, which included pressured speech, tangential thinking, intermittent grandiosity, the patient had several physical complaints that were evaluated in the Emergency Room by Dr. Calle. They included a headache. The patient stated she had high blood pressure. She is on Levaquin, amoxicillin secondary to having bronchitis and sinus infection. She had Levaquin filled on 11/29/2019. The patient denies any fever, chills, nausea, vomiting or diarrhea, chest pain, shortness of breath, numbness or tingling. ADDITIONAL INFORMATION: The patient was evaluated on 12/06/2019 for hypertension, headache and eye pain. I believe this was in [place] [facility], she was noted to be hyperverbal. She was discharged home and advised to follow up with mental health professional. Patient returned 12/08/2019 with a headache again. She was noted to be hyperverbal. She reported that the symptoms began after she started taking prednisone. At that time, the patient had a normal head CT, was given a headache cocktail and discharged home. The patient was talking and anxious since and cannot complete or discuss why she was present and she denied suicidal ideation or homicidal ideation. PAST MEDICAL HISTORY: Osteoarthritis, limited range of motion bilateral knees. SURGICAL HISTORY: Hiatal herniorrhaphy. Appendectomy and left knee arthroscopy. She is 1, para 3 with one child that was , unknown causes. [address] [place] [address] HISTORY AND PHYSICAL Name: SE BONILLA Room #: 518B[facility]B [id number]: 12/11/19 Attend Phys: Erick Sauceda, Discharge: 12/20/19 Date of : 46 Report #: [id number] MEDICATIONS: Reported medications at home: Lisinopril 5 mg p.o. daily, atorvastatin 20 mg p.o. daily, levofloxacin 500 mg p.o. daily, hydrocodone 5 mL per tube b.i.d., glipizide 5 mg p.o. daily, benzonatate 200 mg p.o. b.i.d., albuterol 2 puffs inhaled q. 4-6 hours p.r.n. Metformin ER 750 mg p.o. daily, Flonase nasal daily, amoxicillin, Seroquel 25 mg p.o. at bedtime, tramadol, acetaminophen 37.5/325, hydroxyzine 25 mg p.r.n. Recently, she was on a Medrol Dosepak. Also, has been on duloxetine in the past and famotidine. ALLERGIES: No known allergies. SOCIAL HISTORY: Denied tobacco, alcohol or recreational drug use. REVIEW OF SYSTEMS: From the Emergency Room: CONSTITUTIONAL: Denies fever, chills, malaise, unexplained weight change. EYES: Denies eye pain, visual change or discharge. HENT: Denies having hearing changes, ear drainage, ear infections, ear pain, neck pain or neck stiffness. RESPIRATORY: Denies cough, shortness of breath, hemoptysis or respiratory distress. CARDIOVASCULAR: Denies chest pain, chest pain with exertion or edema. GASTROINTESTINAL: Denies abdominal pain, nausea, vomiting or diarrhea. GENITOURINARY: Denies burning, frequency or dysuria. MUSCULOSKELETAL: Denies back pain, joint pain, muscle weakness or myalgias. SKIN: Denies rash. NEUROLOGIC: Denies weakness or loss of consciousness. Weight 111.13 kilos. PHYSICAL EXAMINATION: Grossly normal. EKG done showed a QTc of 436, ST-T wave, no acute changes, normal axis, rate 85, normal sinus rhythm. LABORATORY DATA: From the ER, sodium 140, potassium 3.6, chloride 104, bicarbonate 24, anion gap 12, BUN 15, creatinine 1.1, estimated GFR 49, glucose 231. Hemoglobin A1c was pending in the ER. Calcium 8.5, total bilirubin 0.4, direct bilirubin less than 0.1, AST 12, ALT 21, alkaline phosphatase 91, total protein 7.5, albumin 3.6. Vitamin B12 of 338. TSH 1.520. UDS negative. Urinalysis was negative. Additional laboratories that have since resulted include a vitamin D level 6.9, B12 level 338, hemoglobin A1c is still pending. VITAL SIGNS: Today, temperature 36.6, pulse 93, respirations 18, BP 147/69, O2 sat 99%. MUSCULOSKELETAL: Kyphotic, but normal gait. Dressed. [facility] [address] [place] [address] HISTORY AND PHYSICAL Name: SE BONILLA Sarah Beth Room #: 518B-B [facility] IN ..#: [id number] Admission: 12/11/19 Attend Phys: Erick Sauceda DO Discharge: 12/20/19 Date of : 46 Report #: [id number] MENTAL STATUS EXAMINATION: This is a well-developed, obese female, pressured speech. Attention limited. Concentration limited. Speech as stated pressured. Thought process is linear at times and tangential. Thought content, hypervigilant about conflict with significant other's son who she states is verbally and environmentally disturbing to her. Denied SI. Denied HI. Denied auditory, visual, or tactile hallucinations. Memory not formally tested. Insight limited. Judgment limited. Fund of knowledge below average. FORMULATION: A 69-year-old obese female admitted for acute ernie. 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 Mother 3 years ago at 97. Father in 1973, he was an alcoholic. Denies history of cancer, strokes, head injuries. Her adult child Lito has left me a message. I have asked the social psychologist to call back for further collateral. DIAGNOSES: Bipolar 1 disorder, most recent episode manic, medical comorbidities, obesity, B12 deficiency mild, vitamin D deficiency advanced, hypertension, hyperlipidemia. PLAN: Yesterday Haldol 2 mg b.i.d. and Depakote 750 was started. Increase Haldol to 4 mg b.i.d. Continue Depakote. Blood level 4-5 days. The hospitalist says the patient getting Lasix 40 mg p.o. daily, glipizide 5 mg p.o. daily, atorvastatin 20 mg p.o. daily, metformin 750 mg b.i.d., Flonase. Normal PRNs. Evaluate, stabilize, obtain collateral. ESTIMATED LENGTH OF STAY: 7-14 days. STRENGTHS: She is insured. She has a domestic support. WEAKNESSES: Advancing age, suboptimal physical health. Time spent on interview, review of records, coordination of care, discussion with her significant other, Koby, is at least 60 minutes. <ELECTRONICALLY SIGNED> By: Erick Sauceda DO 12/20/19 2134 [id number] 1401 Erick Sauceda DO /nt
--- NOTE | 2019-12-22 20:34 | D ---
[facility] [place] [address] DISCHARGE SUMMARY Name: SE BONILLA Room #: 518B-B [facility] IN M.R.#: [id number] Admission: 12/11/19 Attend Phys: Erick Sauceda DO Discharge: 12/20/19 Date of : 46 Report #: [id number] THIS REPORT FOR: cc: Michael Coe MD,Michael Sauceda,Erick Huitron DO ~ THIS REPORT FOR: //name// CC: Erick Coe DATE OF SERVICE: 12/20/2019 ATTENDING PHYSICIAN: Erick Sauceda DO. FLATWORK FINISHER HAND AT THE TIME OF DISCHARGE: Harry Spaulding M.D. DISCHARGE DIAGNOSES: Primarily Bipolar 1 disorder, most recent episode manic with psychotic features, much improved. ADDITIONAL DIAGNOSES: Include obesity, BMI 39.5; bronchitis, treated with antibiotics; hypertension, on home meds; diabetes mellitus type 2, hemoglobin A1c 7.5; lower extremity swelling due to mild diastolic dysfunction, RIOS hose bilaterally. Doppler ultrasound ruled out DVT. Lasix 40 mg daily x 2 days was complete to finish. Orthostatic hypotension, resolved. DISCHARGE PLAN: Discharging to her boyfriend Koby's resident. Outpatient psychiatric care, the patient will need to establish with [facility]. She will need to walk in for an intake for that. ADDITIONAL DISCHARGE INSTRUCTIONS: She will go to [facility] on 12/27/2019 to engage in services. She was referred for PT and OT to [facility] outpatient therapy. Her daughter, Lito, is involved in helping the patient, so she was informed of these discharge plans. The patient is also encouraged to see her primary care physician in 1 month. DIET: Diabetic 1800-calorie diet. ACTIVITY LEVEL: As tolerated. The patient is using a walker at this time to ambulate. DISCHARGE MEDICATIONS: Nitrofurantoin 100 mg p.o. b.i.d. x 5 more days, Depakote ER 750 mg p.o. at bedtime for mood stabilization, Rx called in for 30 days; vitamin D3 5000 international units p.o. daily for supplementation, Haldol 2 mg p.o. b.i.d. The patient had requested a decrease in this. I initially had changed it down to 1 mg p.o. b.i.d., but I called in a prescription for [address] [address] DISCHARGE SUMMARY Name: ES BONILLA Room #: 518B[facility]B [facility] IN [facility].#: [id number] Admission: 12/11/19 Attend Phys: Erick Sauceda DO Discharge: 12/20/19 Date of : 46 Report #: [id number] p.o. b.i.d. because Dr. Alejandro and the patient's daughter believed this to be more efficacious and from the patient's symptoms lisinopril 5 mg p.o. daily, atorvastatin 20 mg p.o. daily, glipizide 5 mg p.o. daily, albuterol sulfate 2 puffs inhaled q.4-6 hours p.r.n. for wheezing, metformin ER 750 mg p.o. b.i.d. for hyperglycemia, Flonase 1 spray each nostril b.i.d. REASON FOR ADMISSION: Back on 12/11/2019 is as follows: The patient presented to the ER complaining of hypertension and having a headache. She also was frankly manic was not found to be negative for an acute medical admission, so she was referred to Geriatric Psychiatry, so the patient was admitted in frankly manic state. Initiation of mood stabilizer was done as well as antipsychotic. It took several days to get things simmer down. Her Depakote level on 12/15/2019 was 60; this is at 750 mg. There are some concerns about cognitive impairment. Syphilis serology was negative. The patient had several complaints of "feeling like she was blacking out." She was found to have orthostasis. She was given intravenous fluids. She also had some lower extremity swelling. Family meeting was held with her boyfriend as well as her son and daughter. Discussed the nature of the situation. At this point, the patient retains decisional capacity and in the setting of ernie, it is not a great time to do any neuropsych testing. There is a lot of conflict where the patient lives between the patient and her boyfriend's son. Discussed that this is not an inpatient issue, but it would be the patient's prerogative to move elsewhere with her boyfriend and her daughter and son. The patient's ernie improved over the long weekend. At this time, she can step down and felt to be stable for discharge. PHYSICAL EXAMINATION: VITAL SIGNS: Temperature 36.3, pulse 80, respirations 15, BP 119/54. MUSCULOSKELETAL: Assisted gait with walker. MENTAL STATUS EXAMINATION: This is a well-developed, obese female appearing stated age. Attention intact. Concentration fair. Speech is normal, rate, rhythm, and tone. Thought process is linear and goal directed. Thought content focused on themes of entitlement getting her needs met. No psychomotor agitation, no psychomotor retardation. Denied SI or HI. Denied hopelessness, helplessness. Memory not formally tested. Insight limited. Judgment fair. Fund of knowledge at least average. PROGNOSIS: For this patient is guarded given her general medical problems and at times not exercising the best judgment and handling conflict-ridden situations. LABORATORY DATA: Laboratory this admission from 12/17/2019, H and H 13.4 and 40.3, white count 8.0, platelet count 230,000. Chemistries, other than elevated glucose mildly, within normal limits. A1c 7.5. Initial magnesium was low at 1.7. No transaminitis. Troponin less than 0.06. Vitamin D level was [facility] [address] [place] [address] DISCHARGE SUMMARY Name: SE BONILLA Room #: 518B[facility]B [facility] IN ..#: [id number] Admission: 12/11/19 Attend Phys: Erick Sauceda DO Discharge: 12/20/19 Date of : 46 Report #: [id number] absolutely low at 6.9, so she had some high dose 50,000 units as well as a 5000 units which I will continue on. TSH was 1.520 for this admission. Sodium 141, potassium 4.2, chloride 104, bicarbonate 29, BUN 16, creatinine 0.9. Syphilis serology as stated was nonreactive. Toxicology negative. Urinalysis negative. <ELECTRONICALLY SIGNED> By: Erick Sauceda DO 12/22/192033 33 11 Erick Sauceda, DO /nt
== END 2019-12-20 12:35 | disposition home or self-care (01) | DRG 885 ==
LOC: ER 11:39 → EROBS 16:16 → SBH 16:16
PROVIDERS: Emergency Medicine; Internal Medicine; Psychiatry & Neurology Psychiatry; ADMIT Psychiatry & Neurology Psychiatry
DX: F31.9 Bipolar disorder, unspecified (principal); I10 Essential (primary) hypertension; R51 Headache; H57.10 Ocular pain, unspecified eye; K44.9 Diaphragmatic hernia without obstruction or gangrene; M19.90 Unspecified osteoarthritis, unspecified site; E66.9 Obesity, unspecified; J40 Bronchitis, not specified as acute or chronic; E11.9 Type 2 diabetes mellitus without complications; M79.89 Other specified soft tissue disorders; I95.1 Orthostatic hypotension; E78.5 Hyperlipidemia, unspecified; Z68.39 Body mass index [BMI] 39.0-39.9, adult; Z90.89 Acquired absence of other organs; Z79.2 Long term (current) use of antibiotics; Z79.891 Long term (current) use of opiate analgesic; Z79.899 Other long term (current) drug therapy
CPT/HCPCS: 10880